=== PATIENT | female | born 1960 | race Caucasian/White ===

== ENCOUNTER → 2018-09-03 17:14 | Outpatient (CLI) | payer OTHER, SELFPAY ==
[2018-09-03 11:00] VITALS: BMI 19.3
[2018-09-03 17:26] LABS: Absolute Neutrophil Count 5.8 X10^3/uL (2.0-7.7); Basophil# 0.06 X10^3/uL; Basophil% 0.7 % (0-1); Eosinophil# 0.35 X10^3/uL; Eosinophils% 4.1 % (0-5); Hematocrit 44.9 % (37-47); Hemoglobin 14.3 g/dl (12.0-15.0); Lymphocyte % 21.2 % (19-41); Mean Corp Hgb Conc 31.8 g/gl (32-36); Mean Corpuscular Hgb 29.6 pg (27.0-32.0); Mean Platelet Vol. 10.2 fl (6.2-12.0); Monocyte# 0.49 X10^3/uL; Monocyte% 5.8 % (0-10); Neutrophil # 5.78 X10^3/uL (2.7-7.7); Neutrophil % 68.1 % (47-70); Platelet Count 284 K/mm3 (150-450); RBC Distribution Width CV 14.3 % (11.6-14.6); RBC Distribution Width SD 48.2 fl (35.1-43.9); Red Blood Count 4.83 M/mm3 (4.2-5.4); White Blood Count 8.5 K/mm3 (4.4-11.0)
[2018-09-03 17:28] LABS: POSITIVE COUNT NO; POSITIVE DIFFERENTIAL NO; POSITIVE MORPHOLOGY NO
[2018-09-03 17:38] LABS: ALB/GLOB Ratio 1.1 RATIO (0.9-2.4); AST(SGOT) 17 U/L (15-37); Alanine Aminotransfer ALT/SGPT 21 U/L (13-56); Albumin, Serum 3.9 g/dL (3.2-5.0); Alkaline Phosphatase 103 U/L (45-117); Anion Gap 9 (5-15); BUN 7 mg/dL (7-18); BUN/Creat Ratio 9.2 RATIO (10-20); Calcium,Total 9.6 mg/dL (8.5-10.1); Chloride 105 mmol/L (98-107); Creatinine, Serum 0.76 mg/dL (0.55-1.02); EST Glomerular Filtration Rate 83 mL/min (>60); Est Glom Filt Rate - Afr Amer 101 mL/min (>60); Globulin 3.7 g/dL (2.2-4.2); Glucose 86 mg/dL (74-106); Potassium 4.7 mmol/L (3.5-5.1); Prealbumin 22.1 mg/dL (20.0-40.0); Protein, Total 7.6 g/dL (6.4-8.2); Sodium Level 142 mmol/L (136-145)
== END ==
PROVIDERS: Referring Provider Nurse Practitioner; Visit Provider Nurse Practitioner
DX: R63.4 Abnormal weight loss (principal)
CPT/HCPCS: 80053; 84134; 85025

== ENCOUNTER 2019-07-27 13:19 | Emergency (ER) | payer OTHER, MEDICARE, SELFPAY ==
[2019-07-03 17:24] VITALS: BMI 19.8
[2019-07-27 13:20] VITALS: BP 103/51; PULSE 109; RESP 16; TEMP 36.7; O2SAT 97; BMI 20.3
--- NOTE | 2019-07-27 13:39 | EKG12_ITS ---
Test Reason : DYSRYTHMIA Blood Pressure : / mmHG Vent. Rate : 096 BPM Atrial Rate : 096 BPM P-R Int : 138 ms QRS Dur : 084 ms QT Int : 358 ms P-R-T Axes : 075 031 050 degrees QTc Int : 452 ms Normal sinus rhythm Normal ECG Confirmed by KAMALA DUBON ([id number]), loan expeditor YUNIER RAGLAND ([id number]) on 08/03/2019 3:13:12 PM Referred By: FLAKITO Confirmed By:KAMALA DUBON
[2019-07-27] MEDS: Ondansetron 4 MG/2 ML Vial IV (14:09)
[2019-07-27] MEDS: 0.9% Normal Saline 1,000 ML 1000 ML IV (14:09)
[2019-07-27 14:11] VITALS: BP 100/63; PULSE 105; RESP 15; O2SAT 95
--- NOTE | 2019-07-27 14:15 | ECHOD_ITS ---
Reason For Study: ABN EKG Procedure This was a 2D Doppler, Color Flow transthoracic echocardiogram. The study was technically difficult. Pt in supine position due to abdominal pain. Exam performed portable in ED. Left Ventricle Normal size and thickness. Apical false tendon noted. The estimated ejection fraction is 45-50 %. Stage 1 diastolic dysfunction. Anterior Bouton : Akinetic. Inferior Bouton : Akinetic. Mid- anteroseptal : Severely Hypokinetic. Right Ventricle Normal size and thickness. Normal systolic function. Atria Normal left atrium. Normal right atrium. Normal atrial septum. Mitral Valve The mitral valve is structurally normal. No prolapse or stenosis seen. Trivial mitral valve insufficiency. Tricuspid Valve Normal tricuspid valve. Trivial tricuspid valve insufficiency. Right ventricular systolic pressure estimated to be 29 mmHg. Aortic Valve Normal aortic valve. Trisinus/trileaflet aortic valve. Pulmonic Valve Normal pulmonic valve. Great Vessels Normal aortic root. Normal arch. Normal inferior vena cava. Inferior vena cava collapse with sniff. Pericardium/Pleural No pericardial effusion. MMode/2D Measurements & Calculations LVIDd: 3.8 cm IVSd: 0.61 cm LAV(MOD-bp): 32.1 ml LVIDs: 2.3 cm LVPWd: 0.80 cm LAV(MOD-bp) Indexed: 21.1 ml/m2 FS: 39.8 % LAV(MOD-sp2): 28.9 ml LAV(MOD-sp4): 35.6 ml LA dimension(2D): 2.6 cm LA A4 area: 14.1 cm2 RA A4 area: 8.3 cm2 Time Measurements MV dec time: 0.16 sec Doppler Measurements & Calculations MV E max kane: 91.8 cm/sec Lat Peak E' Kane: 7.2 cm/sec Med Peak E' Kane: 6.8 cm/sec MV A max kane: 126.8 cm/sec E/E' lat: 12.8 E/E' med: 13.4 MV E/A: 0.72 Ao V2 max: 145.2 cm/sec LV V1 max: 105.0 cm/sec TR max kane: 278.0 cm/sec Ao max P.4 mmHg LV V1 max P.4 mmHg TR max P.1 mmHg Interpretation Summary The estimated ejection fraction is 45-50 %. Stage 1 diastolic dysfunction. Trivial mitral valve insufficiency. Trivial tricuspid valve insufficiency. Right ventricular systolic pressure estimated to be 29 mmHg. Patient's LV contraction pattern may be consistent with either distal anteroseptal myocardial infarction or Takostubos cardiomyopathy. Recommend clinical correlation. In addition the patient appears to have fibrinous material located in her abdominal cavity, recommend clinical correlation or alternative mode of testing. There is no comparison study available. Ordering Physician: Erasto Connelly Performed By: Yojana Le, ALBERTO, RVT
--- NOTE | 2019-07-27 14:26 | CT_ITS ---
STUDY: CT ABDOMEN AND PELVIS WITH CONTRAST REASON FOR EXAM: Female, 59 years old. Right lower quadrant pain. History of GI bleed. Chest pain. Elevated white count. RADIATION DOSAGE (If Supplied By Facility): CTDIvol = ( 6.96 ) mGy, DLP = ( 652.66 ) mGycm TECHNIQUE: Transaxial images were obtained from the dome of the diaphragm to the symphysis pubis without oral contrast. IV 100mL Isovue-370 was administered. Sagittal and coronal images were reconstructed. Individualized dose optimization techniques were used for this CT. COMPARISON: None. FINDINGS: The visualized lung bases are unremarkable. The visualized portions of the heart are within normal limits. Normal liver. Normal gallbladder and extrahepatic biliary system. The spleen is of normal size and contour. There is heterogenous enhancement which may be due to timing. The possibility of hypodense lesions in the spleen are less likely possibility. Normal pancreas. Normal bilateral adrenal glands. Normal right kidney. There is a small cortical cyst in the upper pole. Otherwise normal left kidney. There is thickening of the distal esophagus versus hiatal hernia. The stomach is otherwise unremarkable. There are multiple dilated fluid-filled loops of small bowel throughout the abdomen. The distal small bowel appears nondilated however there is no obvious transition point. The proximal colon is distended with air and feces. There is marked wall thickening and luminal narrowing beginning in the distal transverse colons/splenic flexure area and extending downward to the rectosigmoid colon consistent with colitis. The appendix is visualized and appears normal. There is diffuse atherosclerotic calcification of the abdominal aorta, without a demonstrated aneurysm. Normal inferior vena cava. Normal retroperitoneum. Normal urinary bladder. The uterus is atrophic. There is no pelvic lymphadenopathy. Fluid is seen in the posterior cul-de-sac, right paracolic car and right subphrenic space. No free air is seen within the peritoneal cavity. Normal abdominal wall. Normal osseous structures. CT/Abdomen/Pelvis W IV Cont ONLY IMPRESSION: 1. Colitis involving the splenic flexure and descending colon. 2. Resultant distention of small bowel and proximal colon. 3. Hiatal hernia versus thickened distal esophagus. 4. Mild free fluid in the posterior cul-de-sac and right paracolic gutter. 5. Left renal cyst. 6. Atherosclerotic changes of the abdominal aorta. Electronically Signed: Fito Lim DO at 17:26 EDT Tel [phone], Service support ,
--- NOTE | 2019-07-27 14:28 | ED.VIS.GEN ---
History of Present Illness Informant: Patient Onset: Days - 2 days Context: Gradual Onset Timing: Continuous Quality: bright red Location: stool Current Severity: Severe Maximum Severity: Severe Worsened by: nothing Relieved by: nothing Associated Symptoms: Abdominal pain and lightheadedness Narrative: 59-year-old female past medical history of hypertension, osteoarthritis, GERD, hyperlipidemia and migraines presents to the emergency department with bright red blood in stool. Patient reports having bright red blood each time she has a bowel movement for the last 2 days. She has had 5 episodes over the last 24 hours. There is not always stool mixed in with the blood. She has noticed quarter size blood clots. She states that she initially was vomiting not last night but the night before 3 times. No hematemesis or coffee-ground emesis. She is no longer vomiting but does feel nauseated continues to have bright red blood in stool and per rectum and is having lower bilateral abdominal pain. She feels lightheaded weak and fatigued. No chest pain or shortness of breath. No back pain. No syncope. She is not anticoagulated. No leg pain or swelling. No history of similar symptoms. She has had an endoscopy remotely but never a colonoscopy. Prior similar symptoms: No Recent Illness/Hospitalization: No <Mars Kendall - Last Filed: 07/27/19 15:44> <Erasto Connelly - Last Filed: 07/27/19 19:48> Chief Complaint: GI Bleed Past Medical History Prior records reviewed: Yes Past Medical History: - - Hypertension hyperlipidemia migraines arthritis Surgical History: - - , endometrial ablation, right thumb surgery, D&C, tubal ligation, tonsillectomy <Mars Kendall - Last Filed: 07/27/19 15:44> <Erasto Connelly - Last Filed: 07/27/19 19:48> - Allergies and Home Meds Allergies/Adverse Reactions: Allergies celecoxib [From Celebrex] Allergy (Intermediate, Verified 07/27/19 13:20) rash Zxpvxbo-Pkk-Kul Reductase Inhibitor Allergy (Intermediate, Verified 07/27/19 13:20) rhabodomyosis Sulfa (Sulfonamide Antibiotics) Allergy (Intermediate, Verified 07/27/19 13:20) Rash sumatriptan [From Imitrex] Adverse Reaction (Intermediate, Verified 07/27/19 13:20) chest pain Primary Care Physician: [facility] Doctor,Out of [NON-STAFF] - Review of Systems All systems negative except as indicated General: Denies: Chills, Fever, Malaise Eyes: Denies: Visual changes - bilaterally, Blurred Vision - bilaterally, Diplopia ENT: Denies: Rhinorrhea, Sore throat Cardiovascular: Denies: Chest pain, Palpitations, Heart racing Respiratory: Denies: Dyspnea, Cough, Sputum Gastrointestinal: Reports: Abdominal pain, Nausea, Vomiting, Hematochezia. Denies: Diarrhea, Constipation, Melena Genitourinary: Denies: Dysuria, Hematuria, Frequency Musculoskeletal: Denies: Myalgias, Arthralgias, Neck pain, Back pain, Swelling, Extremity Pain Skin: Denies: Rash, Abscess, Abrasions, Wounds Neurological: Denies: Headache, Weakness, Parasthesia, Numbness Hematologic: Denies: Easy bruising, Easy bleeding <Mars Kendall - Last Filed: 07/27/19 15:44> Physical Exam Vital Signs/Narrative: Vital Signs Temp Pulse Resp BP Pulse Ox 07/27/19 14:11 105 H 15 100/63 95 07/27/19 13:20 98.0 F 109 H 16 103/51 L 97 Inital Vital Signs reviewed: Yes General: Well nourished, Well developed, No Acute Distress Head: Normocephalic, Atraumatic Eyes: Perrl, EOMI ENT: Moist mucous membranes Neck: Supple, Nontender, No lymphadenopathy, No JVD Cardiovascular: Regular rhythm, No murmurs, Tachycardia Respiratory: No distress, CTA bilaterally, Chest nontender Abdomen: Soft, Nondistended, Normal bowel sounds, Tender. Negative for: Guarding, Rebound tenderness Rectal: Guaiac positive, Nontender, - - BRB noted. no active bleeding Back: Nontender, Normal Inspection. Negative for: CVA tenderness, Spinal tenderness Extremities: Nontender, No edema Skin: Normal color, No rash Neurological: Alert, Oriented x3 Psychological: Normal affect, Normal Mood <Mars Kendall - Last Filed: 07/27/19 15:44> Vital Signs/Narrative: Vital Signs Pulse Resp BP Pulse Ox 07/27/19 16:39 110 H 17 123/70 H 94 07/27/19 14:11 105 H 15 100/63 95 <Erasto Connelly - Last Filed: 07/27/19 19:48> Diagnostic/Tx/Re-eval - Medical Decision Making I supervised the PA and have performed my own pertinent history and physical. Results and treatment plan were discussed. HPI: Patient reports that she has had bright red blood in her stool for the past 2 days. She also reports that she has heartburn and that she has discomfort there that is burning and 5 out of 10 in severity. She reports that she has been nauseated and diaphoretic at times. She denies any vomiting or shortness of breath. PE: Cardiovascular: Regular rate and rhythm with no murmur. Respiratory: Clear to auscultation bilaterally. Abdomen: Soft, moderate diffuse tenderness palpation, no guarding, rebound, or peritoneal signs. Test results: EKG shows sinus tachycardia at 109. She has ST elevation in leads V1 and V2 with a Q wave present. There is ST elevation in V3 with no Q wave. There are no reciprocal changes. There is no old EKG for comparison. Clinical Impression(s) from Imaging Studies Abdomen/Pelvis CT 07/27/19 14:26 IMPRESSION: 1. Colitis involving the splenic flexure and descending colon. 2. Resultant distention of small bowel and proximal colon. 3. Hiatal hernia versus thickened distal esophagus. 4. Mild free fluid in the posterior cul-de-sac and right paracolic gutter. 5. Left renal cyst. 6. Atherosclerotic changes of the abdominal aorta. Electronically Signed: Fito Lim DO at 17:26 EDT Tel [phone], Service support , Chest CTA 07/27/19 14:30 IMPRESSION: 1. No evidence of pulmonary embolus. 2. No aortic dissection or aneurysm. 3. No acute pulmonary disease. There is minimal bilateral apical pleural scarring. 4. Thickened enlarged esophagus suggestive of esophagitis. There is thought to be an associated hiatal hernia. Electronically Signed: Fito Lim DO at 17:31 EDT Tel [phone], Service support , Abnormal Lab Results 07/27/19 07/27/19 07/27/19 15:37 15:37 15:37 WBC 16.6 H RBC 4.26 Hgb 12.4 Hct 39.1 MCV 91.8 MCH 29.1 MCHC 31.7 L RDW Std Deviation 48.5 H RDW Coeff of Eyal 14.4 Plt Count 141 L MPV 9.9 Immature Gran % (Auto) 1.300 H Neut % (Auto) 87.8 H Lymph % (Auto) 4.[address] % (Auto) 6.2 Eos % (Auto) 0.2 Baso % (Auto) 0.3 Absolute Neuts (auto) 14.5 H Absolute Lymphs (auto) 0.70 L Nucleated RBC % 0 PT INR APTT Sodium 134 L Potassium 4.4 Chloride 102 Carbon Dioxide 25.0 Anion Gap 7 BUN 18 Creatinine 0.81 Estim Creat Clear Calc 61.58 Est GFR (MDRD) Af Amer 93 Est GFR (MDRD) Non-Af 77 BUN/Creatinine Ratio 22.1 H Glucose 114 H Calcium 8.4 L Total Bilirubin 0.60 AST 72 H ALT 23 Alkaline Phosphatase 100 Troponin I 10.400 H* Total Protein 5.9 L Albumin 2.3 L Globulin 3.6 Albumin/Globulin Ratio 0.6 L Lipase 25 L Blood Type O POSITIVE Antibody Screen NEGATIVE 07/27/19 15:37 WBC RBC Hgb Hct MCV MCH MCHC RDW Std Deviation RDW Coeff of Eyal Plt Count MPV Immature Gran % (Auto) Neut % (Auto) Lymph % (Auto) [place] % (Auto) Eos % (Auto) Baso % (Auto) Absolute Neuts (auto) Absolute Lymphs (auto) Nucleated RBC % PT 15.8 H INR 1.3 APTT 38.4 H Sodium Potassium Chloride Carbon Dioxide Anion Gap BUN Creatinine Estim Creat Clear Calc Est GFR (MDRD) Af Amer Est GFR (MDRD) Non-Af BUN/Creatinine Ratio Glucose Calcium Total Bilirubin AST ALT Alkaline Phosphatase Troponin I Total Protein Albumin Globulin Albumin/Globulin Ratio Lipase Blood Type Antibody Screen Emergency Department course: When the EKG was obtained the patient was discussed with Dr. Tomas. Given the fact that she is here for a GI bleed she cannot be anticoagulated and taken to the [facility]. She was given 2 L of normal saline and Zosyn IV. An echo was also obtained. Patient actually had a bloody bowel movement while in the department. Treatment Plan: When everything returned the patient was discussed with Dr. [place]ispaw. Given the combination of a GI bleed with a non-ST elevation CT it is felt that she would be better served with transfer to a tertiary care center. She was discussed with [facility], her hospital of choice, and has been accepted in transfer. Disposition: Transferred in critical condition. Impression: 1. Non-ST elevation CT. 2. Lower GI bleed. 3. Splenic and descending colitis. 4. Critical care time 33 minutes. This note was generated with [employer] dictation software. It may contain incorrect words, spelling, and punctuation that were not noted in review of the chart prior to signing. - Critical Care Time Critical care time (excluding procedures): 30-74 minutes <Erasto Connelly - Last Filed: 07/27/19 19:48> ED Disposition <Mars Kendall - Last Filed: 07/27/19 15:44> <Erasto Connelly - Last Filed: 07/27/19 19:48> - Plan for ED Patient: Diagnosis: NSTEMI (non-ST elevated myocardial infarction), Colitis, GI bleed Referrals: [facility] Doctor,Out of [NON-STAFF] -
--- NOTE | 2019-07-27 14:30 | CT_ITS ---
STUDY: CTA CHEST REASON FOR EXAM: Female, 59 years old. Right lower quadrant pain. Chest pain. Elevated white count. RADIATION DOSAGE (If Supplied By Facility): CTDIvol = ( 6.96 ) mGy, DLP = ( 652.66 ) mGycm TECHNIQUE: The examination was performed with the intravenous administration of IV 100mL Isovue-370. Post-processing of the angiographic images was performed, with multiplanar reformation and 3D reconstruction. Individualized dose optimization techniques were used for this CT. COMPARISON: CT of the abdomen and pelvis, July 27, 2019. FINDINGS: Normal enhancement of the main pulmonary artery and right and left pulmonary arteries. Normal enhancement of the bilateral peripheral pulmonary arteries. There is no demonstrated pulmonary embolism. Is mild atherosclerotic changes of the thoracic aorta without aneurysm. There is no demonstrated aortic dissection. Normal heart and pericardium. There are calcifications of the coronary arteries. There is marked thickening of the esophagus with no visualized lumen. Question esophagitis. Otherwise normal mediastinum.. Normal hilar regions. Normal visualized trachea and bronchi. The lungs are hyper expanded, with flattening of the hemidiaphragms. The lungs are well expanded. There is no focal mass or infiltrate. There is bilateral apical pleural scarring most marked on the right. Normal chest wall structures. Normal osseous structures. Question hiatal hernia. CT/CTA Chest W/WO Contrast IMPRESSION: 1. No evidence of pulmonary embolus. 2. No aortic dissection or aneurysm. 3. No acute pulmonary disease. There is minimal bilateral apical pleural scarring. 4. Thickened enlarged esophagus suggestive of esophagitis. There is thought to be an associated hiatal hernia. Electronically Signed: Fito Lim DO at 17:31 EDT Tel [phone], Service support ,
[2019-07-27 15:48] LABS: Absolute Neutrophil Count 14.5 X10^3/uL (2.0-7.7); Basophil# 0.05 X10^3/uL; Basophil% 0.3 % (0-1); Eosinophil# 0.04 X10^3/uL; Eosinophils% 0.2 % (0-5); Hematocrit 39.1 % (37-47); Hemoglobin 12.4 g/dL (12.0-15.0); Lymphocyte % 4.2 % (19-41); Mean Corp Hgb Conc 31.7 g/dL (32-36); Mean Corpuscular Hgb 29.1 pg (27.0-32.0); Mean Corpuscular Volume 91.8 fL (81-99); Mean Platelet Vol. 9.9 fl (6.2-12.0); Monocyte# 1.02 X10^3/uL; Monocyte% 6.2 % (0-10); NRBC Flagged by Analyzer 0 % (0-5); Neutrophil # 14.54 X10^3/uL (2.7-7.7); Neutrophil % 87.8 % (47-70); Platelet Count 141 K/mm3 (150-450); RBC Distribution Width CV 14.4 % (11.6-14.6); RBC Distribution Width SD 48.5 fl (35.1-43.9); Red Blood Count 4.26 M/mm3 (4.2-5.4); White Blood Count 16.6 K/mm3 (4.4-11.0)
[2019-07-27 15:55] LABS: International Normalized Ratio 1.3; Prothrombin Time (Protime)PT. 15.8 SECONDS (11.7-14.9)
[2019-07-27 15:56] LABS: Partial Thromboplast Time 38.4 Seconds (24.1-36.2)
[2019-07-27] MEDS: Mag Hydrox/Al Hydrox/Simeth 30 ML UDC PO (16:38)
[2019-07-27 16:39] VITALS: BP 123/70; PULSE 110; RESP 17; O2SAT 94
[2019-07-27 16:40] LABS: ALB/GLOB Ratio 0.6 RATIO (0.9-2.4); AST(SGOT) 72 U/L (15-37); Alanine Aminotransfer ALT/SGPT 23 U/L (13-56); Albumin, Serum 2.3 g/dL (3.2-5.0); Alkaline Phosphatase 100 U/L (45-117); Anion Gap 7 (5-15); BUN 18 mg/dL (7-18); BUN/Creat Ratio 22.1 RATIO (10-20); Calcium,Total 8.4 mg/dL (8.5-10.1); Chloride 102 mmol/L (98-107); Creatinine, Serum 0.81 mg/dL (0.55-1.02); EST Glomerular Filtration Rate 77 mL/min (>60); Est Glom Filt Rate - Afr Amer 93 mL/min (>60); Estimated Creatinine Clearance 61.58 ml/min; Globulin 3.6 g/dL (2.2-4.2); Glucose 114 mg/dL (74-106); Lipase 25 U/L (73-393); Potassium 4.4 mmol/L (3.5-5.1); Protein, Total 5.9 g/dL (6.4-8.2); Sodium Level 134 mmol/L (136-145)
[2019-07-27] MEDS: 0.9% Normal Saline 1,000 ML 999 ML IV (17:54)
[2019-07-27] MEDS: fentaNYL 100 MCG/2 ML Ampul 50 MCG IV (18:18)
[2019-07-27 18:20] VITALS: BP 105/56; PULSE 101; RESP 19; O2SAT 95
--- NOTE | 2019-07-27 18:49 | EKG12_ITS ---
Test Reason : ABD PAIN Blood Pressure : / mmHG Vent. Rate : 109 BPM Atrial Rate : 109 BPM P-R Int : 128 ms QRS Dur : 080 ms QT Int : 328 ms P-R-T Axes : 074 048 060 degrees QTc Int : 441 ms Sinus tachycardia with Premature atrial complexes Cannot rule out Anteroseptal infarct , age undetermined Abnormal ECG Confirmed by KAMALA DUBON ([id number]), film or videotape editor YUNIER RAGLAND ([id number]) on 08/03/2019 3:13:24 PM Referred By: FLAKITO Confirmed By:KAMALA DUBON
[2019-07-27 19:44] VITALS: BP 110/61; PULSE 95; RESP 18; O2SAT 95
[2019-07-27 19:59] VITALS: BP 101/60; PULSE 97; RESP 20; TEMP 36.6; O2SAT 98
== END 2019-07-27 20:24 | disposition short-term general hospital (02) ==
LOC: ED 18:07
PROVIDERS: Emergency Medicine; Emergency Provider Physician Assistant Medical; PCP Family Medicine
DX: I21.4 Non-ST elevation (NSTEMI) myocardial infarction (principal); K92.1 Melena; K52.9 Noninfective gastroenteritis and colitis, unspecified; I10 Essential (primary) hypertension; M19.90 Unspecified osteoarthritis, unspecified site; G43.909 Migraine, unspecified, not intractable, without status migrainosus; E78.5 Hyperlipidemia, unspecified; N28.1 Cyst of kidney, acquired; I70.0 Atherosclerosis of aorta; Z79.82 Long term (current) use of aspirin; Z79.899 Other long term (current) drug therapy
CPT/HCPCS: 36415; 71275; 74177; 80053; 82274; 83690; 84484; 85025; 85610; 85730; 86850; 86900; 86901; 93005; 93306; 96361; 96365; 96375; 99285; J7030; J7040; J7050; Q9967; A4216; J2405

== ENCOUNTER → 2024-09-15 | Outpatient (CLI) | payer OTHER, SELFPAY | END | disposition home or self-care (01) | PROVIDERS: PCP Family Medicine; Visit Provider Nurse Practitioner | DX: L72.3 Sebaceous cyst (principal); L08.9 Local infection of the skin and subcutaneous tissue, unspecified; T14.8XXA Other injury of unspecified body region, initial encounter; X58.XXXA Exposure to other specified factors, initial encounter | CPT/HCPCS: 87070; 87205 ==